=== PATIENT | male | born 1990 | race Caucasian/White ===

== ENCOUNTER → 2016-12-25 | Outpatient (CLI) | payer OTHER | LOC: KOH-I 09:00 | DX: R10.11 Right upper quadrant pain (principal); R11.0 Nausea; R93.5 Abnormal findings on diagnostic imaging of other abdominal regions, including retroperitoneum | CPT/HCPCS: 76705 ==

== ENCOUNTER → 2017-01-06 | Outpatient (CLI) | payer OTHER | LOC: KOH-I 08:45 | DX: M25.561 Pain in right knee (principal); S83.511A Sprain of anterior cruciate ligament of right knee, initial encounter; M25.461 Effusion, right knee; S80.01XA Contusion of right knee, initial encounter; S83.411A Sprain of medial collateral ligament of right knee, initial encounter | CPT/HCPCS: 73721 ==

== ENCOUNTER 2021-06-28 14:27 | Emergency (ER) | payer OTHER ==
[2021-06-28] MEDS ORDERED: CYCLOBENZAPRINE10 MG PO (17:59)
== END 2021-06-28 18:04 | disposition home or self-care (01) ==
LOC: ER1 14:27
DX: S16.1XXA Strain of muscle, fascia and tendon at neck level, initial encounter (principal); S29.012A Strain of muscle and tendon of back wall of thorax, initial encounter; S39.012A Strain of muscle, fascia and tendon of lower back, initial encounter; S43.402A Unspecified sprain of left shoulder joint, initial encounter; S53.402A Unspecified sprain of left elbow, initial encounter; M25.561 Pain in right knee; G89.29 Other chronic pain; F11.90 Opioid use, unspecified, uncomplicated; V49.40XA Driver injured in collision with unspecified motor vehicles in traffic accident, initial encounter; Y92.410 Unspecified street and highway as the place of occurrence of the external cause
CPT/HCPCS: 72125; 72128; 72131; 73030; 73080; 73564; 99284; J1200; J2930